=== PATIENT | female | born 1955 | race Caucasian/White ===

== ENCOUNTER → 2021-11-26 | Outpatient (CLI) | payer MEDICARE ==
--- NOTE | 2021-11-26 20:15 | RAD ---
Study: XR KNEE_RT 1-2 VIEWS Indication: Knee pain. Injury. Comparison: None. Findings: Femorotibial compartment joint space height is maintained. No significant arthrosis at the femorotibi al compartments. Tiny patellar osteophytes. Small knee joint effusion. No displaced fracture or malal ignment. Impression: 1. No acute fracture. Minimal patellofemoral compartment arthrosis. 2. Small knee joint effusion. If there is concern for injury to the soft tissue supporting structures of the knee consider MRI. Electronically signed by: TERESA GERBER MD (11/26/2021 8:12 PM) [facility]
== END ==
LOC: RAD 12:16
PROVIDERS: ATTEND Nurse Practitioner Family
DX: M25.461 Effusion, right knee (principal); M76.891 Other specified enthesopathies of right lower limb, excluding foot; M17.11 Unilateral primary osteoarthritis, right knee
CPT/HCPCS: 73560